=== PATIENT | female | born 1985 | race Caucasian/White ===

== ENCOUNTER 2018-03-04 16:45 | Emergency (ER) | payer OTHER ==
[2018-03-04] MEDS ORDERED: SODIUM CHLORIDE 0.9% 1,000 ML IV STA (17:11)
[2018-03-04] MEDS ORDERED: KETOROLAC 30 MG/ML 1 ML VIAL IVP STA (17:36)
[2018-03-04] MEDS ORDERED: diphenhydrAMINE 50 MG/ML 1 ML VIAL IVP STA (17:36)
[2018-03-04] MEDS ORDERED: METOCLOPRAMIDE 5 MG/ML 2 ML VIAL IVP STA (17:36)
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
[2018-03-04 18:42] VITALS: BP 112/78; PULSE 79; RESP 16
[2018-03-04 19:04] VITALS: TEMP 98.9
== END 2018-03-04 19:03 | disposition home or self-care (01) ==
LOC: EC 16:45
DX: S09.90XA Unspecified injury of head, initial encounter (principal); Z32.02 Encounter for pregnancy test, result negative; F32.9 Major depressive disorder, single episode, unspecified; F41.9 Anxiety disorder, unspecified; Z79.899 Other long term (current) drug therapy; W17.89XA Other fall from one level to another, initial encounter; Y93.89 Activity, other specified; Y92.89 Other specified places as the place of occurrence of the external cause
CPT/HCPCS: 81025; 70450; 99284; 96374; 96375 ×2; 96361; J1200; J2765; J1885

== ENCOUNTER 2018-09-05 09:25 | Emergency (ER) | payer OTHER ==
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
--- NOTE | 2018-09-05 10:37 | XR ---
EXAMINATION TYPE: XR chest 2V DATE OF EXAM: 09/05/2018 COMPARISON: NONE HISTORY: Chest pain TECHNIQUE: Frontal and lateral views of the chest are obtained. FINDINGS: There is no focal air space opacity. No evidence for pneumothorax. No pleural effusion. The cardiac silhouette size is within normal limits. The osseous structures are grossly intact. IMPRESSION: 1. No acute cardiopulmonary process.
[2018-09-05] MEDS ORDERED: IBUPROFEN 600 MG STARTER PACK 4 TAB BTL PO STA (11:12)
[2018-09-05 11:26] VITALS: BP 119/89; PULSE 86; RESP 16; TEMP 97.9
== END 2018-09-05 11:23 | disposition home or self-care (01) ==
LOC: EC 09:25
DX: S06.0X0A Concussion without loss of consciousness, initial encounter (principal); F41.9 Anxiety disorder, unspecified; F32.9 Major depressive disorder, single episode, unspecified; Z79.899 Other long term (current) drug therapy; V43.52XA Car driver injured in collision with other type car in traffic accident, initial encounter; Y92.410 Unspecified street and highway as the place of occurrence of the external cause
CPT/HCPCS: 70450; 71046; 72125; 99284

== ENCOUNTER 2018-09-26 11:13 | Emergency (ER) | payer OTHER ==
[2018-09-26 11:20] VITALS: BP 141/90; PULSE 76; TEMP 98.3
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
[2018-09-26 13:29] VITALS: RESP 16
== END 2018-09-26 13:20 | disposition home or self-care (01) ==
LOC: EC 11:13
DX: Z02.83 Encounter for blood-alcohol and blood-drug test (principal); Z04.3 Encounter for examination and observation following other accident; S60.512A Abrasion of left hand, initial encounter; S60.511A Abrasion of right hand, initial encounter; S80.212A Abrasion, left knee, initial encounter; S80.211A Abrasion, right knee, initial encounter; F41.9 Anxiety disorder, unspecified; F32.9 Major depressive disorder, single episode, unspecified; W01.0XXA Fall on same level from slipping, tripping and stumbling without subsequent striking against object, initial encounter; Y93.01 Activity, walking, marching and hiking
CPT/HCPCS: 99283

== ENCOUNTER 2020-07-15 15:23 | Emergency (ER) | payer OTHER ==
[2020-07-15 15:41] VITALS: RESP 18; TEMP 98
[2020-07-15 17:08] LABS: Appearance,Urine Cloudy (Clear); Bacteria,Urine Rare /hpf; Bilirubin,Urine Negative (Negative); Blood,Urine Negative (Negative); Color,Urine Light Yellow; Glucose,Urine (UA) Negative (Negative); Ketones,Urine Negative (Negative); Leukocyte Esterase,Urine Large (Negative); Mucus,Urine Rare /hpf; Nitrite,Urine Negative (Negative); Protein,Urine Negative (Negative); RBC,Urine 1 /hpf (0-5); Specific Gravity,Urine 1.018 (1.001-1.035); Squamous Epithelial Cell,Urine 15 /hpf (0-4); Urobilinogen,Urine <2.0 mg/dL (<2.0); WBC,Urine 2 /hpf (0-5)
--- NOTE | 2020-07-15 17:20 | US ---
EXAMINATION TYPE: Transabdominal DATE OF EXAM: 07/15/2020 5:03 PM COMPARISON: NONE CLINICAL HISTORY: abd pain, mild spotting. LLQ pain, spotting positive hCG test. EXAM PERFORMED: Transabdominal (TA) EXAM MEASUREMENTS: GESTATIONAL AGE / DATING Physician Established: Not yet established Dates by LMP: LMP unknown Dates by First Scan: No previous this is first scan Dates by Current Scan for: (10 weeks/3 days) EDC: 02/07/21 MATERNAL ANATOMY Uterus: 10.1 x 5.8 x 7.8cm Right Ovary: 3.1 x 1.4 x 1.5cm Left Ovary: 2.8 x 1.4 x 1.5cm Post CDS / Adnexa: wnl Presence of free fluid: no Presence of corpus luteal cyst: 2 hypoechoic areas right ovary = 1.2 x 1.2 x 1.2cm and 1.2 x 1.3 x 1. 3cm GESTATION / SURVEY CRL: 3.5cm (10 weeks/3 days) Yolk Sac (normal less than 6mm): 0.4cm Heart Rate: 149 bpm Rhythm: Normal IUP: Viable IUP Date of LMP: unknown Beta HcG (if available): Not available at this time Confirmation of single live intrauterine gestation as gestational sac, yolk sac, and pole are s een. No free fluid in pelvic cul-de-sac. Both ovaries seen. There are 2 adjacent small hypoechoic lesions right ovary, one likely reflects a c orpus luteal cyst. No suspicious extra ovarian adnexal masses. IMPRESSION: Single live intrauterine gestation is confirmed, mean crown-rump length 3.5 cm correspond ing to 10 week 3 day old fetus.
[2020-07-15] MEDS ORDERED: Rhogam IMMUNE GLOBULIN 1,500 UNIT/1 ML IM ONE (17:33)
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
[2020-07-15 18:26] VITALS: BP 121/73; PULSE 81
== END 2020-07-15 18:25 | disposition home or self-care (01) ==
LOC: EC 15:23
DX: O99.891 Other specified diseases and conditions complicating pregnancy (principal); R10.30 Lower abdominal pain, unspecified; O46.91 Antepartum hemorrhage, unspecified, first trimester; Z29.14 Encounter for prophylactic rabies immune globulin; O99.341 Other mental disorders complicating pregnancy, first trimester; F41.9 Anxiety disorder, unspecified; F32.9 Major depressive disorder, single episode, unspecified; Z79.899 Other long term (current) drug therapy; Z3A.12 12 weeks gestation of pregnancy
CPT/HCPCS: 96372; 99284 ×2; 96374; 86900; 86901; 86850; 81001; 76801; J2791

== ENCOUNTER 2020-11-05 09:15 | Outpatient (CLI) | payer OTHER ==
--- NOTE | 2020-11-05 11:26 | US ---
EXAMINATION TYPE: US OB >= 14 wk fetus DATE OF EXAM: 11/05/2020 COMPARISON: None CLINICAL HISTORY: placenta placement, rule out abruption; patient stated fell yesterday and notices i ntermittent left lateral abd. and pelvic cramping TECHNIQUE: Transabdominal (TA) GESTATIONAL AGE / DATING Physician Established: (26 weeks/4 days) EDC: 02/07/2021 Dates by LMP: unknown Dates by First Scan: (26 weeks/4 days) EDC: 02/07/2021 Dates by Current Scan: (25 weeks/6 days) EDC: 02/12/2021 Beta HCG (if available): NA SURVEY IUP: Single PLACENTA: Anterior; no abruption was seen at time of US. PREVIA: No Previa SERGEY: 15.6 cm Normal CERVICAL LENGTH (transabdominal: norm > 3.0cm): 3.3 cm BIOMETRY PRESENTATION: Vertex LIE: Longitudinal BPD: 6.5 cm 26 weeks / 2 days HC: 24.4 cm 26 weeks / 3 days AC: 21.7 cm 26 weeks / 1 day FL: 4.8 cm 26 weeks / 1 day ESTIMATED WEIGHT IN GRAMS: 901.47 grams ESTIMATED WEIGHT IN LBS/OZ: 2 lb. 0 oz. WEIGHT PERCENTAGE BASED ON ESTABLISHED DATES: 23.5% HC/AC: 1.13 Normal FL/AC: 22.18 Normal HEART RATE: 154 bpm RHYTHM: Normal Focal myometrial contraction was noted on inferior posterior uterine wall at exam's end. Single, live IUP,25 weeks/6 days, EDC: 02/12/2021, HR 154bpm. IMPRESSION: 1. Single intrauterine gestation estimated at 25 weeks 6 days gestation based on the current ultrasou nd measurements. This has a calculated EDC of 02/12/2021. 2. Cardiac activity measures 154 bpm. 3. No placental abruption is identified on the images provided.
[2020-11-05 11:36] VITALS: BP 113/70; PULSE 92; RESP 20; TEMP 98.3
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
== END 2020-11-05 10:50 | disposition home or self-care (01) ==
LOC: FBPOP 09:15
PROVIDERS: ATTEND Obstetrics & Gynecology
DX: O47.02 False labor before 37 completed weeks of gestation, second trimester (principal); Z3A.25 25 weeks gestation of pregnancy
CPT/HCPCS: 76805; G0463; 99213

== ENCOUNTER 2020-11-27 13:30 | Outpatient (CLI) | payer OTHER ==
[2020-11-27 18:40] VITALS: BP 123/79; PULSE 104; RESP 20; TEMP 98.3
--- NOTE | 2020-12-01 08:09 | P.MSEPDOC ---
Presenting Problems - Arrival Data Date of Arrival on Unit: 11/27/20 Time of Arrival on Unit: 13:35 Mode of Transport: Wheelchair - Complaint OB-Reason for Admission/Chief Complaint: Rule Out PROM Comment: to r/o labor. abd pain since being at work all morning. states leaking this morning and passed a large chunk of brown mucousy liquid. Medical History - Information : 6 Para: 2 Term: 2 : 0 Abortions: Spontaneous or Elective: 3 Number of Living Children: 2 - Gestational Age Gestational Age by STEPHANIE (wks/days): 29 Weeks and 3 Days Review of Systems - Review of Systems Constitutional: No problems Breast: No problems ENT: No problems Cardiovascular: No problems Respiratory: No problems Gastrointestinal: No problems Genitourinary: No problems Musculoskeletal: No problems Neurological: No problems Skin: No problems Comment: borderline personality disorder. on prozac, klonopin, ritalin prn, asa, pnv . Vital Signs - Temperature Temperature: 98.3 F Temperature Source: Oral - Pulse Right Brachial Pulse Rate: 104 Pulse Assessment Method: Automatic Cuff - Respirations Respiratory Rate: 20 Oxygen Delivery Method: Room Air O2 Sat by Pulse Oximetry: 99 - Blood Pressure Right Arm Blood Pressure: 123/79 Blood Pressure Mean: 93 Blood Pressure Source: Automatic Cuff Medical Screen Scoring (Pre) - Cervical Exam Dilation: 0 cm = 0 Membranes: Intact - Uterine Contractions Frequency: N/A Duration: N/A Intensity: N/A - Maternal Vital Signs Maternal Temperature: N/A Maternal Blood Pressure: N/A Signs of Preeclampsia: N/A Maternal Respirations: N/A - Maternal Trauma Maternal Trauma: N/A - Assessment - Baby A Baseline FHR: 135 Heart Rate - NICHD Category: Category I (Normal) = 0 NST: Reactive Position: N/A Station: N/A - Total Score - Baby A Total Score - Baby A: 0 - Total Score - Baby B Total Score - Baby B: 0 - Total Score - Baby C Total Score - Baby C: 0 - Level of Risk - Baby A Level of Risk - Baby A: Low (0-5) - Level of Risk - Baby B Level of Risk - Baby B: Low (0-5) - Level of Risk - Baby C Level of Risk - Baby C: Low (0-5) Physician Notification (Pre) - Physician Notified Physician Notified Date: 11/27/20 Physician Notified Time: 14:26 Spoke With: oracio New Order Received: Yes - Notification Comment Comment: discharge home. metamucil, stool softeners, fruit and veg, prunes, juice, to keep next appt Disposition - Disposition OB Disposition: Physician follow up in office, Discharge to home Discharge Date: 11/27/20 Discharge Time: 14:36 I agree with the RN Medical Screening Exam: Yes Case reviewed; plan agreed upon as documented in EMR&OBIX.: Yes Comments: Patient was neither seen nor examined by myself Diagnosis: FALSE LABOR BEFORE 37 COMPLETED WEEKS OF GEST, SECOND TRI
== END 2020-11-27 14:36 | disposition home or self-care (01) ==
LOC: FBPOP 13:30
PROVIDERS: ATTEND Obstetrics & Gynecology
DX: O47.00 False labor before 37 completed weeks of gestation, unspecified trimester (principal); Z3A.29 29 weeks gestation of pregnancy
CPT/HCPCS: 59025; 84112; G0463; 99213

== ENCOUNTER 2020-12-02 17:30 | Outpatient (CLI) | payer OTHER ==
[2020-12-02 18:30] VITALS: BP 130/74; PULSE 106; RESP 16; TEMP 98
== END 2020-12-02 18:25 | disposition home or self-care (01) ==
LOC: FBPOP 17:30
PROVIDERS: ATTEND Obstetrics & Gynecology
DX: O26.93 Pregnancy related conditions, unspecified, third trimester (principal); M54.5 Low back pain; Z3A.30 30 weeks gestation of pregnancy
CPT/HCPCS: 59025; G0463; 99213

== ENCOUNTER 2020-12-15 15:10 | Outpatient (CLI) | payer OTHER ==
[2020-12-15 17:01] VITALS: BP 108/66; PULSE 86; RESP 16; TEMP 98
--- NOTE | 2020-12-29 11:27 | P.MSEPDOC ---
Presenting Problems - Arrival Data Date of Arrival on Unit: 12/15/20 Time of Arrival on Unit: 15:20 Mode of Transport: Ambulatory - Complaint OB-Reason for Admission/Chief Complaint: Decreased Movement, NST Comment: from office for monitoring Medical History - Information : 6 Para: 2 Term: 2 : 0 Abortions: Spontaneous or Elective: 3 Number of Living Children: 2 - Gestational Age Gestational Age by STEPHANIE (wks/days): 32 Weeks and 0 Days Review of Systems - Review of Systems Constitutional: No problems Breast: No problems ENT: No problems Cardiovascular: No problems Respiratory: No problems Gastrointestinal: No problems Genitourinary: No problems Musculoskeletal: No problems Neurological: No problems Skin: No problems Comment: has restless leg. rt side. standing cant sit throughout nst Vital Signs - Temperature Temperature: 98.0 F Temperature Source: Temporal Artery Scan - Pulse Right Apical Pulse Rate: 86 Pulse Assessment Method: Automatic Cuff - Respirations Respiratory Rate: 16 Oxygen Delivery Method: Room Air O2 Sat by Pulse Oximetry: 98 - Blood Pressure Right Arm Blood Pressure: 108/66 Blood Pressure Mean: 80 Blood Pressure Source: Automatic Cuff Medical Screen Scoring (Pre) - Cervical Exam Dilation: Exam Deferred Effacement: Exam Deferred Membranes: Intact - Uterine Contractions Frequency: N/A Duration: N/A Intensity: N/A - Maternal Vital Signs Maternal Temperature: N/A Maternal Blood Pressure: N/A Signs of Preeclampsia: N/A Maternal Respirations: N/A - Maternal Trauma Maternal Trauma: N/A - Assessment - Baby A Baseline FHR: 135 Heart Rate - NICHD Category: Category I (Normal) = 0 NST: Reactive Position: N/A Station: N/A - Total Score - Baby A Total Score - Baby A: 0 - Total Score - Baby B Total Score - Baby B: 0 - Total Score - Baby C Total Score - Baby C: 0 - Level of Risk - Baby A Level of Risk - Baby A: Low (0-5) - Level of Risk - Baby B Level of Risk - Baby B: Low (0-5) - Level of Risk - Baby C Level of Risk - Baby C: Low (0-5) Physician Notification (Pre) - Physician Notified Physician Notified Date: 12/15/20 Physician Notified Time: 15:20 New Order Received: Yes - Notification Comment Comment: may discharge home if reactive nst after 1 hour of monitoring Disposition - Disposition OB Disposition: Physician follow up in office, Discharge to home Discharge Date: 12/15/20 Discharge Time: 16:30 I agree with the RN Medical Screening Exam: Yes Case reviewed; plan agreed upon as documented in EMR&OBIX.: Yes Comments: patient was neither seen nor examined by me. Diagnosis: DECREASED MOVEMENTS, THIRD TRIMESTER, FETUS 1
== END 2020-12-15 16:30 | disposition home or self-care (01) ==
LOC: FBPOP 15:10
PROVIDERS: ATTEND Obstetrics & Gynecology
DX: O36.8130 Decreased fetal movements, third trimester, not applicable or unspecified (principal); Z3A.32 32 weeks gestation of pregnancy
CPT/HCPCS: 59025; G0463; 99213

== ENCOUNTER 2021-01-08 06:19 | Inpatient (IN) | payer OTHER ==
[2021-01-08] MEDS ORDERED: CARBOPROST TROMETHAMINE 250 MCG/ML 1 ML AMP IM PRN (06:37)
[2021-01-08] MEDS ORDERED: METHYLERGONOVINE 0.2 MG/ML 1 ML AMP IM PRN (06:37)
[2021-01-08] MEDS ORDERED: OXYTOCIN 10 UNIT/ML 1 ML VIAL IM PRN (06:37)
[2021-01-08] MEDS ORDERED: TERBUTALINE 1 MG/ML VIAL SQ PRN (06:37)
[2021-01-08] MEDS ORDERED: LIDOCAINE 0.5% (PF) 5 MG/ML (50 ML SDV) SQ PRN (06:37)
[2021-01-08] MEDS ORDERED: PHENYLEPHRINE-0.9% NACL SYG 1,000 MCG/10 ML SYRINGE ONE (06:39)
[2021-01-08] MEDS ORDERED: DEXAMETHASONE SOD PHOSPHATE 4 MG/ML 1 ML VIAL ONE (06:39)
[2021-01-08] MEDS ORDERED: ONDANSETRON 4 MG/2 ML VIAL ONE (06:39)
[2021-01-08] MEDS ORDERED: PROPOFOL 10 MG/ML 20 ML VIAL IV ONE (06:39)
[2021-01-08] MEDS ORDERED: SUCCINYLCHOLINE CHLORIDE 100 MG/5 ML SYR IV ONE (06:39)
[2021-01-08] MEDS ORDERED: fentaNYL (PF) 50 MCG/ML 2 ML AMP ONE (06:39)
[2021-01-08] MEDS ORDERED: OXYTOCIN 10 UNIT/ML 1 ML VIAL ONE (06:39)
[2021-01-08 06:45] LABS: Basophils % (A) 0 %; Eosinophils # (A) 0.1 k/uL (0-0.7); Eosinophils % (A) 1 %; HCT 35.3 % (34.0-46.0); HGB 11.8 gm/dL (11.4-16.0); Lymphocytes # (A) 3.2 k/uL (1.0-4.8); Lymphocytes % (A) 27 %; MCH 30.6 pg (25.0-35.0); MCHC 33.5 g/dL (31.0-37.0); MCV 91.4 fL (80.0-100.0); Mean Platelet Volume 11.8; Monocytes # (A) 0.6 k/uL (0-1.0); Monocytes % (A) 5 %; Neutrophils # (A) 7.9 k/uL (1.3-7.7); Neutrophils % (A) 66 %; RBC 3.86 m/uL (3.80-5.40); RDW 13.8 % (11.5-15.5)
[2021-01-08] MEDS ORDERED: LACTATED RINGERS 1,000 ML IV SCH (06:45)
[2021-01-08 07:16] LABS: Platelet Count 255 k/uL (150-450)
[2021-01-08 07:17] LABS: Large Platelets Present; WBC 11.9 k/uL (3.8-10.6)
[2021-01-08 07:34] LABS: Amphetamine Screen,Urine Not Detected (NotDetected); Barbiturate Screen,Urine Not Detected (NotDetected); Benzodiazepines Screen,Urine Detected (NotDetected); Cocaine Screen,Urine Not Detected (NotDetected); Methadone Screen, Urine Not Detected (NotDetected); Opiate Screen,Urine Not Detected (NotDetected); Oxycodone Screen, Urine Not Detected (NotDetected); Phencyclidine Screen,Urine Not Detected (NotDetected); Tricyclic Antidepressant,Urine Not Detected (NotDetected); Urn Cannabinoid Scrn Not Detected (NotDetected)
[2021-01-08] MEDS ORDERED: diphenhydrAMINE 50 MG/ML 1 ML VIAL IVP PRN ×2 (07:49)
[2021-01-08] MEDS ORDERED: diphenhydrAMINE 25 MG CAP PO PRN (07:49)
[2021-01-08] MEDS ORDERED: ONDANSETRON 4 MG/2 ML VIAL IVP PRN (07:49)
[2021-01-08] MEDS ORDERED: METOCLOPRAMIDE 5 MG/ML 2 ML VIAL IVP PRN (07:49)
[2021-01-08] MEDS ORDERED: diphenhydrAMINE 50 MG CAP PO PRN (07:49)
[2021-01-08] MEDS ORDERED: NALOXONE 0.4 MG/ML 1 ML VIAL IV PRN (07:49)
[2021-01-08] MEDS ORDERED: SIMETHICONE 80 MG CHEWABLE PO PRN (07:49)
[2021-01-08] MEDS ORDERED: HYDROmorphone 4 MG TABLET PO PRN (07:49)
[2021-01-08] MEDS ORDERED: HYDROmorphone 2 MG TAB PO PRN (07:59)
[2021-01-08] MEDS ORDERED: OXYTOCIN 30 UNITS/500 ML NS 30 UNIT in SALINE 1 500ML.BAG IV SCH (08:00)
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
[2021-01-08] MEDS ORDERED: ACETAMINOPHEN IV (For NPO) 1,000 MG in EMPTY BAG 1 BAG IVPB STA (08:09)
--- NOTE | 2021-01-08 08:11 | P.OP ---
Date of Procedure: 01/08/21 Preoperative Diagnosis: #1. 35-3/7 weeks, acute vaginal bleeding #2. Presumed placental abruption #3. Nonreassuring heart rate status, category 2 tracing Postoperative Diagnosis: Same Procedure(s) Performed: #1. Emergency primary low-transverse section Anesthesia: SO Surgeon: Boy Turpin Rn Security #1: Damir Daniel Estimated Blood Loss (ml): 800 IV fluids (ml): 1,000 Urine output (ml): 25 Pathology: other (Placenta) Condition: stable Disposition: floor Operative Findings: Please see history and physical for findings lead to emergency section. In the operating room, she was delivered of a viable 5 lbs. 5 oz. baby girl with Apgars of 8 at 1 minute and 9 at 5 minutes in vertex presentation. Cord gases returned with arterial blood pH of 7.18, the remainder of the gases are available in the chart. Upon opening of the uterus, a large clot was immediately noted. Examination the placenta demonstrated approximately one quarter of the placenta to have adherent clot to the posterior or maternal interface. Otherwise, the uterus, tubes, and ovaries were normal to inspection. The placenta was otherwise normal to inspection as was the cord. Description of Procedure: The patient was prepped and draped in usual fashion and general endotracheal anesthesia was then administered. A Pfannenstiel incision was made in a relatively urgent fashion by Dr. Daniel secondary to concern for heart rate tracing in my absence. The incision was extended into the abdominal cavity without difficulty. The bladder peritoneum was left intact and a 2 cm incision made in the lower uterine segment demonstrating a significant amount of blood in the fluid. The incision was extended bluntly in both directions. The head was delivered up and through the incision where the nose and mouth were thoroughly suctioned. Remainder of the infant was delivered onto the field where the cord was doubly clamped, cut, and the infant passed for resuscitative measures with weight and Apgars as noted above. The drug enforcement agent was standing by. A segment of cord was doubly clamped, cut, and set aside to obtain cord gases. cord blood was collected for evaluation for the necessity of RhoGAM. The placenta was then delivered manually and intact as noted above. Later examination showed an adherent clotted area over approximately one quarter of the placental disc. The uterus was exteriorized and the interior cavity of uterus swept of any remaining placental or membranous fragments. At this time, I arrived in the operating room and assumed control of the surgery. The uterus was closed in 2 layers, the first layer being a running locking stitch of 0 chromic catgut followed by a running imbricating stitch of 0 chromic catgut. Hemostasis appeared to be excellent. The posterior cul-de-sac was suctioned using a guard and the uterus replaced within the abdominal cavity. The gutters were swept of any remaining blood, fluid, or clot. Examination of the incision demonstrated some moderate bleeding at the left angle of the incision which was made hemostatic with a single [id number] stitch of 0 chromic catgut. Remainder the incision appeared to be hemostatic and any small points of bleeding were made hemostatic with the Bovie. The parietal peritoneum was then loosely reapproximated and layer of muscles examined and found to be hemostatic. The fascia was closed with a single running stitch of 0 Vicryl proceeding from margin to margin. The subcutaneous tissues were irrigated, made hemostatic with the Bovie, and reapproximated with a running stitch of 30 plain catgut. The skin was reapproximated with a running subcuticular stitch of 4-0 Vicryl from margin to margin followed by half-inch Steri-Strips placed with Mastisol. Assessment a blood loss for the case was approximately 800 mL including the clot noted inside the uterus. All sponge, instrument, needle counts were correct. There were no complications to the procedure aside from the diagnosis of placental abruption. The patient tolerated the procedure well and proceeded to the recovery room in stable condition. Both mother and infant are resting comfortably in recovery.
[2021-01-08] MEDS: HYDROmorphone PCA 10 MG/50 ML BAG IV PRN ×2 (09:03→21:25)
[2021-01-08] MEDS: LACTATED RINGERS 1,000 ML IV SCH ×2 (09:54→23:15)
[2021-01-08] MEDS: SENNOSIDES-DOCUSATE SODIUM 1 EACH TAB PO SCH ×2 (09:54→20:08)
[2021-01-08] MEDS ORDERED: Rhogam IMMUNE GLOBULIN 1,500 UNIT/1 ML IM ONE (13:46)
[2021-01-08] MEDS: KETOROLAC 15 MG/ML 1 ML VIAL IVP SCH ×2 (14:00→20:07)
[2021-01-08] MEDS: IBUPROFEN 600 MG TAB PO SCH ×2 (14:01→23:13)
[2021-01-08] MEDS: ACETAMINOPHEN TAB 500 MG TAB PO SCH ×2 (15:59→23:13)
[2021-01-08] MEDS: ZOLPIDEM 5 MG TAB PO PRN (20:09)
[2021-01-09] MEDS: ACETAMINOPHEN TAB 500 MG TAB PO SCH ×4 (00:38→20:34)
[2021-01-09] MEDS: LACTATED RINGERS 1,000 ML IV SCH (00:43)
[2021-01-09] MEDS: IBUPROFEN 600 MG TAB PO SCH ×3 (03:05→16:14)
[2021-01-09] MEDS: KETOROLAC 15 MG/ML 1 ML VIAL IVP SCH ×2 (03:06→10:36)
--- NOTE | 2021-01-09 07:48 | P.PN ---
Subjective Progress Note Date: 01/09/21 Principal diagnosis: Postoperative day #1 Slept well. Minimal pain. No complaints. Objective - Vital Signs Vital signs: Vital Signs Temp 98.2 F 01/09/21 03:46 Pulse 88 01/09/21 03:46 Resp 16 01/09/21 03:46 BP 112/71 01/09/21 03:46 Pulse Ox 97 01/09/21 03:46 Intake & Output 01/08/21 01/09/21 01/09/21 18:59 06:59 18:59 Output Total 1400 200 Balance -1400 -200 Weight 72.575 kg Output: Urine 1400 200 Uretheral (Minor) 400 Other: # Voids 1 - Constitutional General appearance: Present: average body habitus, cooperative - EENT Eyes: Present: PERRLA ENT: Present: hearing grossly normal - Respiratory Respiratory: bilateral: CTA - Cardiovascular Rhythm: regular - Gastrointestinal Gastrointestinal Comment(s): Incision clean and dry, intact, Steri-Strips applied. Fundus firm, midline, symmetric, 18 week size. General gastrointestinal: Present: normal bowel sounds - Integumentary Integumentary: Present: normal - Neurologic Neurologic: Present: CNII-XII intact - Musculoskeletal Musculoskeletal: Present: gait normal, strength equal bilaterally - Psychiatric Psychiatric: Present: A&O x's 3, appropriate affect - Labs CBC & Chem 7: 01/08/21 06:35 Assessment and Plan Assessment: Doing well postoperative day #1 Plan: Continue postoperative care. Advanced diet and activity.
[2021-01-09 08:02] LABS: Basophils % (A) 0 %; Eosinophils % (A) 0 %; HCT 24.6 % (34.0-46.0); Lymphocytes # (A) 2.5 k/uL (1.0-4.8); Lymphocytes % (A) 17 %; MCH 32.8 pg (25.0-35.0); MCHC 35.8 g/dL (31.0-37.0); MCV 91.4 fL (80.0-100.0); Monocytes # (A) 0.6 k/uL (0-1.0); Monocytes % (A) 4 %; Neutrophils # (A) 11.3 k/uL (1.3-7.7); Platelet Count 203 k/uL (150-450); RBC 2.69 m/uL (3.80-5.40); RDW 13.2 % (11.5-15.5); WBC 14.6 k/uL (3.8-10.6)
[2021-01-09 08:21] LABS: HGB 8.8 gm/dL (11.4-16.0)
[2021-01-09 09:00] LABS: Large Platelets Present
[2021-01-09] MEDS: SENNOSIDES-DOCUSATE SODIUM 1 EACH TAB PO SCH ×2 (09:39→20:34)
[2021-01-09] MEDS: FLUoxetine HCL 20 MG CAP PO SCH (11:35)
[2021-01-09] MEDS: HYDROmorphone 2 MG TAB PO PRN ×2 (18:41→22:37)
[2021-01-09] MEDS: ZOLPIDEM 5 MG TAB PO PRN (22:37)
[2021-01-10] MEDS: HYDROmorphone 2 MG TAB PO PRN ×5 (05:06→21:30)
[2021-01-10] MEDS: IBUPROFEN 600 MG TAB PO SCH ×4 (05:32→21:35)
[2021-01-10] MEDS: ACETAMINOPHEN TAB 500 MG TAB PO SCH ×3 (05:33→18:11)
[2021-01-10] MEDS: SENNOSIDES-DOCUSATE SODIUM 1 EACH TAB PO SCH ×2 (09:01→21:29)
[2021-01-10] MEDS: FLUoxetine HCL 20 MG CAP PO SCH (09:03)
--- NOTE | 2021-01-10 11:08 | P.PNOBGPC ---
Subjective - Subjective Patient reports: Reports appetite normal, Reports voiding normally, Reports pain well controlled, Reports ambulating normally : doing well, in NICU (And observation for possible symptoms of withdrawal as well as concerns for prematurity.) Objective - Vital Signs Latest vital signs: Vital Signs Temp Pulse Resp BP Pulse Ox 01/10/21 08:00 97.9 F 112 H 18 102/74 100 01/10/21 00:00 98.1 F 68 14 104/61 98 01/09/21 16:00 98.2 F 69 18 108/63 97 Intake and Output 01/09/21 01/10/21 01/10/21 22:59 06:59 14:59 Other: # Voids 1 1 1 # Bowel Movements 0 - Exam Extremities: Present: normal Abdomen: Present: normal appearance, soft. Absent: distention, tenderness Incision: Present: normal, dry, intact Uterus: Present: normal, firm (The uterine fundus is tonic and are peripherally tender around the umbilicus.) Assessment and Plan (1) 35 to 36 weeks gestation of Current Visit: Yes Status: Acute Code(s): [id number] - SNOMED Code(s): 106882927 (2) Non-reassuring electronic monitoring tracing Current Visit: Yes Status: Acute Code(s): O36.8390 - MATERN CARE FOR ABNLT FETL HRT RATE OR RHYM, UNSP TRI, UNSP SNOMED Code(s): 449499073 (3) Placental abruption Current Visit: Yes Status: Acute Code(s): O45.90 - PREMATURE SEPARATION OF PLACENTA, UNSP, UNSP TRIMESTER SNOMED Code(s): 832521495 (4) S/P section Current Visit: Yes Status: Acute Code(s): Z98.891 - HISTORY OF UTERINE SCAR FROM PREVIOUS SURGERY SNOMED Code(s): 877234489 Plan: Continue routine postoperative care. I have strongly encouraged the patient amulet in the hallways at least 4 times daily. She is otherwise performing all activities of daily living.
[2021-01-10 18:34] LABS: Amphetamine Screen,Urine Not Detected (NotDetected); Barbiturate Screen,Urine Not Detected (NotDetected); Benzodiazepines Screen,Urine Detected (NotDetected); Cocaine Screen,Urine Not Detected (NotDetected); Methadone Screen, Urine Not Detected (NotDetected); Opiate Screen,Urine Detected (NotDetected); Oxycodone Screen, Urine Not Detected (NotDetected); Phencyclidine Screen,Urine Not Detected (NotDetected); Tricyclic Antidepressant,Urine Not Detected (NotDetected); Urn Cannabinoid Scrn Not Detected (NotDetected)
[2021-01-10] MEDS: ZOLPIDEM 5 MG TAB PO PRN (21:30)
[2021-01-11] MEDS: ACETAMINOPHEN TAB 500 MG TAB PO SCH ×5 (00:44→19:03)
[2021-01-11] MEDS: HYDROmorphone 2 MG TAB PO PRN ×4 (02:10→21:29)
[2021-01-11] MEDS: IBUPROFEN 600 MG TAB PO SCH ×4 (04:03→21:30)
[2021-01-11] MEDS: SENNOSIDES-DOCUSATE SODIUM 1 EACH TAB PO SCH ×2 (06:44→21:29)
[2021-01-11] MEDS: FLUoxetine HCL 20 MG CAP PO SCH (09:27)
--- NOTE | 2021-01-11 10:19 | P.PNOBGPC ---
Subjective - Subjective Patient reports: Reports appetite normal, Reports voiding normally, Reports pain well controlled, Reports ambulating normally : doing well, in NICU (Under observation for potential withdrawal and minor issues of prematurity.) Objective - Vital Signs Latest vital signs: Vital Signs Temp Pulse Resp BP Pulse Ox 01/11/21 04:00 98.9 F 80 15 106/57 01/10/21 20:06 98.6 F 98 20 137/77 100 01/10/21 16:00 97.8 F 80 16 113/65 100 Intake and Output 01/10/21 01/11/21 01/11/21 22:59 06:59 14:59 Other: # Voids 1 1 - Exam Extremities: Present: normal Abdomen: Present: normal appearance, soft. Absent: distention, tenderness Incision: Present: normal, dry, intact Uterus: Present: normal, firm (Uterus is tonic and appropriately tender below the umbilicus.) - Labs Labs: Abnormal Lab Results - Last 24 Hours (Table) 01/10/21 Range/Units 18:16 Urine Opiates Screen Detected H (NotDetected) U Benzodiazepines Scrn Detected H (NotDetected) Assessment and Plan (1) 35 to 36 weeks gestation of Current Visit: Yes Status: Acute Code(s): [id number] - SNOMED Code(s): 138574639 (2) Non-reassuring electronic monitoring tracing Current Visit: Yes Status: Acute Code(s): O36.8390 - MATERN CARE FOR ABNLT FETL HRT RATE OR RHYM, UNSP TRI, UNSP SNOMED Code(s): 791018655 (3) Placental abruption Current Visit: Yes Status: Acute Code(s): O45.90 - PREMATURE SEPARATION OF PLACENTA, UNSP, UNSP TRIMESTER SNOMED Code(s): 453548059 (4) S/P section Current Visit: Yes Status: Acute Code(s): Z98.891 - HISTORY OF UTERINE SCAR FROM PREVIOUS SURGERY SNOMED Code(s): 494594400 Plan: Continue routine and postoperative care. I would anticipate discharge home tomorrow pending no maternal complications. I have again encouraged her to continue ambulation in the hallways routinely.
[2021-01-11] MEDS: ZOLPIDEM 5 MG TAB PO PRN (21:29)
[2021-01-12] MEDS: IBUPROFEN 600 MG TAB PO SCH ×2 (00:35→06:54)
[2021-01-12 00:47] VITALS: RESP 16
[2021-01-12] MEDS: ACETAMINOPHEN TAB 500 MG TAB PO SCH ×2 (00:48→07:18)
[2021-01-12] MEDS: HYDROmorphone 2 MG TAB PO PRN ×2 (03:36→12:26)
--- NOTE | 2021-01-12 08:01 | P.DS ---
Providers Date of admission: 01/08/21 06:59 Expected date of discharge: 01/12/21 Attending physician: Lea Estrada Primary care physician: Stated None Hospital Course: This is a 35-year-old 6 para 2031 EDC 02/09/2021 at 35-3/7 weeks' gestation. Patient presented from home with bright red brisk vaginal bleeding. Diagnosis of abruption was made, and patient was taken for a stat low transverse section under general anesthetic. She gave to a liveborn female with scores of 8 and 9 at one and 5 minutes respectively. Infant weighed 2400 g or 5 lbs. 5 oz. Please see dictated operative note for details. Postoperatively the patient has done reasonably well. Her is still in the nursery and likely will be discharged home tomorrow. Patient's incision is clean and dry, intact, Steri-Strips applied. Breast-feeding is going well, I have given her prescription for a double electric breast pump. Patient's history in the past with significant for drug use, she has been clean for many years. However, CPS consultation has been requested per the hospital staff and is currently pending. Patient's pain relief at this time is very well controlled with ibuprofen products. Her breasts are not engorged, extremities reveal no edema. Patient is judged to be in good condition for discharge home. She will follow-up with me in the office in 2 weeks. Patient will call with any fevers shakes or chills, foul smelling or copious lochia, with the passage of large blood clots, with any pain not alleviated by [id number] products, or indeed with any concerns. Infant will likely be discharged home tomorrow, and will follow-up with electronic news gathering camera person as per recommendations. Assessment: Doing well postoperative day #4 Patient Condition at Discharge: Good Plan - Discharge Summary Discharge Rx Participant: No New Discharge Prescriptions: No Action FLUoxetine HCL [PROzac] 80 mg PO DAILY MDD daily Pnv 11/Iron Fum/Folic Acid/Om3 [Virt-Miguel Dha Softgel] 1 tab PO DAILY MDD 1 tab Discharge Medication List FLUoxetine HCL [PROzac] 80 mg PO DAILY MDD daily 02/07/14 [History] Pnv 11/Iron Fum/Folic Acid/Om3 [Virt-Miguel Dha Softgel] 1 tab PO DAILY MDD 1 tab 11/05/20 [History] Follow up Appointment(s)/Referral(s): Lea Estrada MD [STAFF PHYSICIAN] - 2 Weeks Discharge Disposition: HOME SELF-CARE
[2021-01-12] MEDS: SENNOSIDES-DOCUSATE SODIUM 1 EACH TAB PO SCH (08:23)
[2021-01-12] MEDS: FLUoxetine HCL 20 MG CAP PO SCH (08:23)
[2021-01-12 09:08] VITALS: BP 131/81; PULSE 101; TEMP 98.8
== END 2021-01-12 15:15 | disposition home or self-care (01) | DRG 788 ==
LOC: FBPOP 06:19 → 4FBP 06:59
PROVIDERS: ADMIT Obstetrics & Gynecology; ATTEND Obstetrics & Gynecology
PROC: 3E0234Z Introduction of Serum, Toxoid and Vaccine into Muscle, Percutaneous Approach (ICD-10-PCS; 2021-01-08)
PROC: 10D00Z1 Extraction of Products of Conception, Low, Open Approach (ICD-10-PCS; principal; 2021-01-08 06:30)
DX: O45.93 Premature separation of placenta, unspecified, third trimester (principal); O76 Abnormality in fetal heart rate and rhythm complicating labor and delivery; O34.211 Maternal care for low transverse scar from previous cesarean delivery; N85.8 Other specified noninflammatory disorders of uterus; O26.893 Other specified pregnancy related conditions, third trimester; O99.344 Other mental disorders complicating childbirth; F32.9 Major depressive disorder, single episode, unspecified; Z67.41 Type O blood, Rh negative; Z3A.35 35 weeks gestation of pregnancy; Z37.0 Single live birth; Z79.899 Other long term (current) drug therapy; Z87.891 Personal history of nicotine dependence
CPT/HCPCS: 80306; 82803; 85025; 85461; 86850; 86870; 86880; 86900; 86901; 88307; 99215

== ENCOUNTER 2021-01-16 12:18 | Emergency (ER) | payer OTHER ==
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
--- NOTE | 2021-01-16 13:24 | XR ---
EXAMINATION TYPE: XR chest 2V DATE OF EXAM: 01/16/2021 COMPARISON: NONE TECHNIQUE: PA and lateral views submitted. HISTORY: Cough FINDINGS: The lungs are clear and there is no pneumothorax, pleural effusion, or focal pneumonia. Mild hyperi nflation. IMPRESSION: 1. No acute process.
[2021-01-16 13:40] VITALS: BP 119/87; PULSE 86; RESP 18; TEMP 98.4
== END 2021-01-16 14:45 | disposition home or self-care (01) ==
LOC: EC 12:18
DX: R05 Cough (principal); R14.1 Gas pain; R07.81 Pleurodynia; R09.89 Other specified symptoms and signs involving the circulatory and respiratory systems; Z20.822 Contact with and (suspected) exposure to COVID-19; Z87.891 Personal history of nicotine dependence
CPT/HCPCS: 71046; 87635; 99283

== ENCOUNTER 2021-06-25 02:05 | Emergency (ER) | payer OTHER ==
[2021-06-25 02:10] VITALS: RESP 18; TEMP 98.2
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
[2021-06-25] MEDS ORDERED: KETOROLAC 15 MG/ML 1 ML VIAL IVP STA (02:37)
[2021-06-25] MEDS ORDERED: SODIUM CHLORIDE 0.9% 1,000 ML IV STA ×2 (02:37)
[2021-06-25] MEDS ORDERED: MORPHINE SULFATE 4 MG/ML SYRINGE IV STA (02:37)
[2021-06-25] MEDS ORDERED: SODIUM CHLORIDE 0.9% 500 ML 500 ML IV STA (02:37)
[2021-06-25 03:00] LABS: Basophils # (A) 0.1 k/uL (0-0.2); Basophils % (A) 0 %; Eosinophils # (A) 0.1 k/uL (0-0.7); Eosinophils % (A) 1 %; HCT 37.7 % (34.0-46.0); HGB 12.4 gm/dL (11.4-16.0); Lymphocytes # (A) 2.7 k/uL (1.0-4.8); Lymphocytes % (A) 19 %; MCH 30.3 pg (25.0-35.0); MCHC 32.9 g/dL (31.0-37.0); MCV 92.2 fL (80.0-100.0); Mean Platelet Volume 9.7; Monocytes # (A) 0.7 k/uL (0-1.0); Monocytes % (A) 5 %; Neutrophils # (A) 10.3 k/uL (1.3-7.7); Neutrophils % (A) 73 %; Platelet Count 275 k/uL (150-450); RBC 4.09 m/uL (3.80-5.40); RDW 13.8 % (11.5-15.5); WBC 14.1 k/uL (3.8-10.6)
[2021-06-25 03:20] LABS: ALT 23 U/L (4-34); AST 29 U/L (14-36); African American GFR (CKD) >90 (>60 ml/min/1.73 sqM); Albumin 3.8 g/dL (3.5-5.0); Alkaline Phosphatase 117 U/L (38-126); Amylase 46 U/L (30-110); Anion Gap 10 mmol/L; Blood Urea Nitrogen 13 mg/dL (7-17); Calcium 9.2 mg/dL (8.4-10.2); Carbon Dioxide 23 mmol/L (22-30); Chloride 106 mmol/L (98-107); Glucose 107 mg/dL (74-99); Lipase 155 U/L (23-300); Non-African American GFR(CKD) >90 (>60 ml/min/1.73 sqM); Sodium 139 mmol/L (137-145); Total Bilirubin 0.2 mg/dL (0.2-1.3)
[2021-06-25 03:33] LABS: Potassium 3.7 mmol/L (3.5-5.1)
[2021-06-25 03:33] LABS: Appearance,Urine Turbid (Clear); Bilirubin,Urine Negative (Negative); Blood,Urine Large (Negative); Color,Urine Red; Glucose,Urine (UA) Negative (Negative); Ketones,Urine Negative (Negative); Leukocyte Esterase,Urine Large (Negative); Mucus,Urine Occasional /hpf; Nitrite,Urine Negative (Negative); Protein,Urine 3+ (Negative); RBC,Urine >182 /hpf (0-5); Specific Gravity,Urine 1.023 (1.001-1.035); Squamous Epithelial Cell,Urine 17 /hpf (0-4); Urobilinogen,Urine <2.0 mg/dL (<2.0); WBC,Urine >182 /hpf (0-5)
--- NOTE | 2021-06-25 03:38 | CT ---
EXAMINATION TYPE: CT abdomen pelvis wo con DATE OF EXAM: 06/25/2021 COMPARISON: None HISTORY: Abd Pain, back pain CT DLP: 469.90 mGycm Automated exposure control for dose reduction was used. Lung bases are clear. There is no pleural effusion. Heart size is normal. There is no pericardial eff usion. Liver spleen stomach pancreas gallbladder appear normal. The bile ducts are not dilated. There is no adrenal mass. Kidneys have normal size and contour. There is no hydronephrosis. There is some fullness of the left ureter compared to the right. No ureteral calculus is seen. There is no ret roperitoneal adenopathy. There is IUD in the uterine fundus. Uterus is anteverted. There is no pelvic mass. Lumbar vertebra have normal alignment. Posterior elements are intact. There is no compression fracture. The bony pelvis is intact. There is no mesenteric edema. There is no ascites or free air. There is no bowel obstruction. Appendi x is medial and appears normal. There is some mild retained fecal material in the large bowel. IMPRESSION: No evidence of renal stone or obstruction. Normal appendix. Mild constipation.
[2021-06-25] MEDS ORDERED: CEPHALEXIN 500 MG CAP PO STA (03:55)
[2021-06-25] MEDS ORDERED: CEPHALEXIN 500MG STARTER PACK 4 CAP BTL PO STA (03:55)
[2021-06-25] MEDS ORDERED: ACET/COD 300 MG/30 MG STARTER PACK 6 TAB BTL PO STA (03:56)
[2021-06-25] MEDS ORDERED: SENNOSIDES-DOCUSATE SODIUM 1 EACH TAB PO STA (03:58)
[2021-06-25 04:26] VITALS: BP 141/86; PULSE 84
== END 2021-06-25 04:26 | disposition home or self-care (01) ==
LOC: EC 02:05
DX: N39.0 Urinary tract infection, site not specified (principal); N12 Tubulo-interstitial nephritis, not specified as acute or chronic; K59.00 Constipation, unspecified; M54.9 Dorsalgia, unspecified; Z87.891 Personal history of nicotine dependence; Z91.81 History of falling
CPT/HCPCS: 36415; 80053; 82150; 83690; 85025; 81001; 81025; 74176; 99284; 96365; 96375; 96361; J2270; J0696; J1885

== ENCOUNTER 2021-07-31 10:00 | Emergency (ER) | payer OTHER ==
[2021-07-31] MEDS ORDERED: SODIUM CHLORIDE 0.9% 2,000 ML IV STA (10:36)
[2021-07-31] MEDS ORDERED: MORPHINE SULFATE 4 MG/ML SYRINGE IV STA (10:36)
[2021-07-31] MEDS ORDERED: ONDANSETRON 4 MG/2 ML VIAL IVP STA ×2 (10:36→13:01)
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
[2021-07-31 11:22] LABS: Basophils % (A) 0 %; Eosinophils # (A) 0.2 k/uL (0-0.7); Eosinophils % (A) 2 %; HCT 38.4 % (34.0-46.0); HGB 12.8 gm/dL (11.4-16.0); Lymphocytes # (A) 1.6 k/uL (1.0-4.8); Lymphocytes % (A) 14 %; MCH 30.3 pg (25.0-35.0); MCHC 33.2 g/dL (31.0-37.0); MCV 91.2 fL (80.0-100.0); Mean Platelet Volume 9.6; Monocytes # (A) 0.6 k/uL (0-1.0); Monocytes % (A) 5 %; Neutrophils # (A) 8.9 k/uL (1.3-7.7); Neutrophils % (A) 77 %; Platelet Count 268 k/uL (150-450); RBC 4.21 m/uL (3.80-5.40); RDW 12.9 % (11.5-15.5); WBC 11.4 k/uL (3.8-10.6)
[2021-07-31 11:37] LABS: ALT 24 U/L (4-34); AST 29 U/L (14-36); African American GFR (CKD) >90 (>60 ml/min/1.73 sqM); Albumin 4.2 g/dL (3.5-5.0); Alkaline Phosphatase 116 U/L (38-126); Amylase 68 U/L (30-110); Anion Gap 10 mmol/L; Blood Urea Nitrogen 14 mg/dL (7-17); Calcium 10.1 mg/dL (8.4-10.2); Carbon Dioxide 27 mmol/L (22-30); Chloride 103 mmol/L (98-107); Glucose 95 mg/dL (74-99); Lipase 145 U/L (23-300); Non-African American GFR(CKD) >90 (>60 ml/min/1.73 sqM); Sodium 140 mmol/L (137-145); Total Bilirubin 0.2 mg/dL (0.2-1.3); Total Protein 7.6 g/dL (6.3-8.2)
[2021-07-31 11:46] LABS: Appearance,Urine Cloudy (Clear); Bacteria,Urine Rare /hpf; Bilirubin,Urine Negative (Negative); Blood,Urine Moderate (Negative); Color,Urine Light Yellow; Glucose,Urine (UA) Negative (Negative); Ketones,Urine Negative (Negative); Leukocyte Esterase,Urine Large (Negative); Mucus,Urine Rare /hpf; Nitrite,Urine Positive (Negative); PH, Urine 5.5 (5.0-8.0); Protein,Urine 1+ (Negative); RBC,Urine 59 /hpf (0-5); Specific Gravity,Urine 1.014 (1.001-1.035); Squamous Epithelial Cell,Urine 16 /hpf (0-4); Urobilinogen,Urine <2.0 mg/dL (<2.0); WBC,Urine >182 /hpf (0-5)
[2021-07-31] MEDS ORDERED: cefTRIAXone IN SWFI 1,000 MG/10 ML SYRINGE IVP STA (12:08)
[2021-07-31] MEDS ORDERED: KETOROLAC 15 MG/ML 1 ML VIAL IM STA (12:46)
[2021-07-31] MEDS ORDERED: ACET/COD 300 MG/30 MG STARTER PACK 6 TAB BTL PO STA (12:46)
[2021-07-31] MEDS ORDERED: HYDROmorphone 0.5 MG/0.5 ML SYRINGE IVP STA (13:01)
[2021-07-31 13:23] VITALS: BP 116/77; PULSE 82; RESP 20; TEMP 97.8
== END 2021-07-31 13:22 | disposition home or self-care (01) ==
LOC: EC 10:00
DX: N12 Tubulo-interstitial nephritis, not specified as acute or chronic (principal); Z87.891 Personal history of nicotine dependence
CPT/HCPCS: 36415; 80053; 82150; 83605; 83690; 85025; 81001; 81025; 87086; 99284; 96372; 96374; 96375; 96361; J2270; J2405; J0696; J1885

== ENCOUNTER 2022-03-12 02:09 | Emergency (ER) | payer OTHER ==
[2022-03-12 02:24] VITALS: BP 116/77; PULSE 74; RESP 20; TEMP 97.7
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
[2022-03-12] MEDS ORDERED: IBUPROFEN 600 MG TAB PO STA (02:58)
== END 2022-03-12 03:49 | disposition home or self-care (01) ==
LOC: EC 02:09
DX: S39.012A Strain of muscle, fascia and tendon of lower back, initial encounter (principal); Z87.891 Personal history of nicotine dependence; X50.0XXA Overexertion from strenuous movement or load, initial encounter; Y92.89 Other specified places as the place of occurrence of the external cause
CPT/HCPCS: 99283

== ENCOUNTER → 2022-03-18 | Outpatient (CLI) | payer OTHER ==
--- NOTE | 2022-03-18 12:39 | XR ---
EXAM TYPE: LUMBAR SPINE X RAY SERIES COMPARISON: NONE HISTORY: Pain TECHNIQUE: 3 views are submitted. FINDINGS: Alignment is anatomic. The pedicles are intact. The transverse processes are intact. There is no s pondylolysis or spondylolisthesis. Tiny spur along the anterior margin of L4. IMPRESSION: 1. No acute process. If symptoms persist or there is concern for disc herniation correlate with MRI.
--- NOTE | 2022-03-18 13:06 | XR ---
EXAMINATION TYPE: XR cervical spine comp DATE OF EXAM: 03/18/2022 COMPARISON: NONE HISTORY: Pain TECHNIQUE: Four views are submitted. FINDINGS: The odontoid is intact. There are no compression deformities. The prevertebral soft tissue structur es are within normal limits. IMPRESSION: 1. No acute process. If symptoms persist or there is concern for disc herniation correlate with MRI.
== END | disposition home or self-care (01) ==
LOC: RADXRMAIN 12:12
PROVIDERS: ATTEND Emergency Medicine
DX: M54.2 Cervicalgia (principal); M54.50 Low back pain, unspecified
CPT/HCPCS: 72050; 72100

== ENCOUNTER → 2022-06-04 | Outpatient (CLI) | payer OTHER ==
--- NOTE | 2022-06-04 12:05 | XR ---
Thoracic spine HISTORY: Pain 4 views of the thoracic spine Thoracic vertebral bodies show preserved height and bone mineralization. There is a slight spinal cur vature. No evident paraspinal mass. Disc spaces are maintained. IMPRESSION: No acute fracture or subluxation. Mild spinal curvature.
== END | disposition home or self-care (01) ==
LOC: RADXRMAIN 11:14
PROVIDERS: ATTEND Emergency Medicine
DX: S16.1XXD Strain of muscle, fascia and tendon at neck level, subsequent encounter (principal); S23.3XXD Sprain of ligaments of thoracic spine, subsequent encounter; M43.9 Deforming dorsopathy, unspecified; X58.XXXD Exposure to other specified factors, subsequent encounter
CPT/HCPCS: 72072

== ENCOUNTER → 2022-07-22 | Outpatient (CLI) | payer OTHER ==
--- NOTE | 2022-07-22 21:48 | MR ---
EXAMINATION TYPE: MR leelee/sandra saeed con DATE OF EXAM: 07/22/2022 COMPARISON: X-ray thoracic spine June 04, 2022. X-ray lumbar spine March 18, 2022 HISTORY: Mid back pain and low back pain that radiates down left leg since March due to resident falli ng on them at work injury. TECHNIQUE: Multiplanar, multisequence imaging of the thoracic and lumbar spine are performed without IV contrast. FINDINGS: Thoracic spine: FINDINGS: Spinal cord shows normal course, caliber, and signal as it courses the thoracic spine. Jorge tebral body heights and alignment are satisfactory. No large disc herniation seen on sagittal images. Bone marrow signal intensity is maintained. Review of the axial images shows no significant spinal canal stenosis or neural foraminal narrowing a t any thoracic level. Visualized portion of the thorax and upper abdomen show no obvious abnormality . IMPRESSION: No significant abnormality is seen to account for patient's symptoms. Lumbar spine: Sagittal images of the lumbar spine show vertebral body heights and alignment to appear satisfactory. Disc desiccation L5-S1 level. Disc space heights are maintained. The conus medullaris is normal in p osition and signal ending at L1-L2 disc space level. Focus of Modic type II endplate change at the an terior inferior L5 level. Axial images show T12-L1 through the L2-L3 levels to appear within normal limits. Axial images at L3-L4 and L4-L5 levels show mild facet arthropathy bilaterally. Axial images at the L5-S1 level shows tiny central disc protrusion with posterior annular tear but sp inal canal is preserved as there is increased surrounding epidural fat. Mild facet arthropathy bilate rally but bilateral neural foramina are patent. Paraspinal muscle bulk is maintained. IMPRESSION: Mild degenerative changes in the lower lumbar spine as detailed above.
== END | disposition home or self-care (01) ==
LOC: RADMRIMAIN 07:27
PROVIDERS: ATTEND Emergency Medicine
DX: S16.1XXD Strain of muscle, fascia and tendon at neck level, subsequent encounter (principal); S39.012D Strain of muscle, fascia and tendon of lower back, subsequent encounter; S23.3XXD Sprain of ligaments of thoracic spine, subsequent encounter; M51.36 Other intervertebral disc degeneration, lumbar region; X58.XXXD Exposure to other specified factors, subsequent encounter
CPT/HCPCS: 72146; 72148

== ENCOUNTER 2023-01-15 16:04 | Emergency (ER) | payer OTHER ==
[2023-01-15] MEDS ORDERED: KETOROLAC 15 MG/ML 1 ML VIAL IM STA (16:23)
--- NOTE | 2023-01-15 16:44 | XR ---
EXAMINATION TYPE: XR knee complete LT DATE OF EXAM: 01/15/2023 CLINICAL HISTORY: pain TECHNIQUE: Three views of the left knee are obtained. COMPARISON: None. FINDINGS: There is no acute fracture/dislocation. The tri-compartment joint spaces appear within no rmal limits. The overlying soft tissue appears unremarkable. IMPRESSION: There is no acute fracture or dislocation ICD 10 NO FRACTURE, INITIAL EVALUATION
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
[2023-01-15] MEDS ORDERED: CEPHALEXIN 500 MG CAP PO STA (17:53)
[2023-01-15] MEDS ORDERED: SULFAMETHOX-TMP 800-160MG 1 EACH TAB PO STA (17:53)
[2023-01-15 18:09] VITALS: BP 110/78; PULSE 98; RESP 16; TEMP 98
== END 2023-01-15 18:09 | disposition home or self-care (01) ==
LOC: EC 16:04
DX: L02.416 Cutaneous abscess of left lower limb (principal); F41.9 Anxiety disorder, unspecified; F32.A Depression, unspecified; Z87.891 Personal history of nicotine dependence
CPT/HCPCS: 73562; 99283; 96372; J1885

== ENCOUNTER 2023-07-31 18:25 | Emergency (ER) | payer OTHER ==
[2023-07-31 18:38] VITALS: BP 158/45; PULSE 90; RESP 18; TEMP 97.8
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
[2023-07-31] MEDS ORDERED: KETOROLAC 15 MG/ML 1 ML VIAL IM STA (19:00)
[2023-07-31] MEDS ORDERED: ACET/COD 300 MG/30 MG STARTER PACK 6 TAB BTL PO STA (19:04)
== END 2023-07-31 19:38 | disposition home or self-care (01) ==
LOC: EC 18:25
DX: K03.81 Cracked tooth (principal); F32.A Depression, unspecified; F41.9 Anxiety disorder, unspecified; F12.90 Cannabis use, unspecified, uncomplicated; Z79.899 Other long term (current) drug therapy; Z87.891 Personal history of nicotine dependence
CPT/HCPCS: 99282; 96372; J1885

== ENCOUNTER 2024-02-02 18:46 | Emergency (ER) | payer OTHER ==
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
[2024-02-02 19:26] VITALS: RESP 18
[2024-02-02] MEDS: IBUPROFEN 800 MG TAB PO STA (19:38)
[2024-02-02] MEDS: FLUORESCEIN STRIPS 1 MG STRIP RIGHT EYE ONE (19:42)
[2024-02-02] MEDS: PROPARACAINE 0.5% OPHTH DROPS 15 ML BTL RIGHT EYE STA (19:42)
[2024-02-02] MEDS: SULFACETAMIDE SOD 10% OPHTH DROPS 15 ML BTL RIGHT EYE SCH (20:29)
[2024-02-02] MEDS ORDERED: KETOROLAC 0.5% OPHTH DROPS 5 ML BTL RIGHT EYE SCH (21:00)
[2024-02-02 21:23] VITALS: BP 120/73; PULSE 87; TEMP 98
== END 2024-02-02 21:15 | disposition home or self-care (01) ==
LOC: EC 18:46
DX: S05.01XA Injury of conjunctiva and corneal abrasion without foreign body, right eye, initial encounter (principal); F12.90 Cannabis use, unspecified, uncomplicated; Z87.891 Personal history of nicotine dependence; X58.XXXA Exposure to other specified factors, initial encounter
CPT/HCPCS: 99283

== ENCOUNTER 2024-04-21 19:22 | Emergency (ER) | payer OTHER ==
[2024-04-21 19:30] VITALS: TEMP 98.1
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
[2024-04-21] MEDS: ACET/COD 300 MG/30 MG STARTER PACK 6 TAB BTL PO STA (20:01)
[2024-04-21] MEDS: HYDROcodone/APAP 5-325MG 1 EACH TAB PO STA (20:03)
[2024-04-21] MEDS: KETOROLAC 15 MG/ML 1 ML VIAL IM STA (20:03)
[2024-04-21 20:12] VITALS: BP 142/99; PULSE 72; RESP 18
== END 2024-04-21 20:16 | disposition home or self-care (01) ==
LOC: EC 19:22
DX: K03.81 Cracked tooth (principal)
CPT/HCPCS: 99283; 96372; J1885

== ENCOUNTER 2024-04-22 18:26 | Emergency (ER) | payer OTHER ==
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
[2024-04-22] MEDS: KETOROLAC 15 MG/ML 1 ML VIAL IVP STA (20:30)
[2024-04-22 20:57] LABS: ALT 18 U/L (4-34); AST 27 U/L (14-36); African American GFR (CKD) >90 (>60 ml/min/1.73 sqM); Albumin 4.3 g/dL (3.5-5.0); Alkaline Phosphatase 85 U/L (38-126); Anion Gap 7 mmol/L; Blood Urea Nitrogen 9 mg/dL (7-17); Calcium 9.3 mg/dL (8.4-10.2); Carbon Dioxide 24 mmol/L (22-30); Chloride 106 mmol/L (98-107); Glucose 78 mg/dL (74-99); Non-African American GFR(CKD) >90 (>60 ml/min/1.73 sqM); Potassium 3.7 mmol/L (3.5-5.1); Sodium 137 mmol/L (137-145); Total Bilirubin 0.7 mg/dL (0.2-1.3); Total Protein 7.3 g/dL (6.3-8.2)
[2024-04-22 21:03] LABS: Basophils # (A) 0.1 k/uL (0-0.2); Basophils % (A) 0 %; Eosinophils # (A) 0.2 k/uL (0-0.7); Eosinophils % (A) 1 %; HGB 12.7 gm/dL (11.4-16.0); Lymphocytes # (A) 1.6 k/uL (1.0-4.8); Lymphocytes % (A) 12 %; MCH 30.4 pg (25.0-35.0); MCHC 32.6 g/dL (31.0-37.0); Mean Platelet Volume 9.5; Monocytes # (A) 0.9 k/uL (0-1.0); Monocytes % (A) 6 %; Neutrophils # (A) 10.9 k/uL (1.3-7.7); Neutrophils % (A) 79 %; Platelet Count 220 k/uL (150-450); RBC 4.19 m/uL (3.80-5.40); RDW 13.3 % (11.5-15.5); WBC 13.7 k/uL (3.8-10.6)
[2024-04-22] MEDS: ONDANSETRON 4 MG/2 ML VIAL IVP STA (21:03)
[2024-04-22] MEDS: MORPHINE SULFATE 4 MG/ML SYRINGE IVP STA (21:03)
--- NOTE | 2024-04-22 21:11 | CT ---
EXAMINATION TYPE: CT facial bones w con CT DLP: 453.3 mGycm, Automated exposure control for dose reduction was used. DATE OF EXAM: 04/22/2024 8:46 PM COMPARISON: None. CLINICAL INDICATION:Female, 39 years old with history of right sided facial swelling; PHH, Right side dental abscess. TECHNIQUE: Multiple unenhanced axial CT images were obtained of the facial bones soft tissue and bone windows. Coronal, axial and sagittal reformatted images were also provided in soft tissue and bone windows and submitted for interpretation. Contrast used:100 ml mL of Isovue 300 with IV Contrast, (none if empty) Oral contrast used: (none if empty) FINDINGS: There is fat stranding changes along the right cheek small fluid collection measuring 16 x 4 x 9 mm e xtends along the right mandible with at least one tooth in this facility with periapical lucency invo lving the right lower second bicuspid. No evidence of fracture. The orbits and globes are intact. The re is mild paranasal mucosal thickening throughout the paranasal sinuses. [place] tonsilliths bilate rally. Adenoid calcification also present. Nonenlarged lymph nodes seen in the neck. The osseous stru ctures are patent No evidence for occlusion. IMPRESSION: Small abscess along the mandible along with right lower mandible second cuspid periapical lucency and associated synovitis change.
[2024-04-22] MEDS: ACET/COD 300 MG/30 MG STARTER PACK 6 TAB BTL PO STA (22:23)
[2024-04-22 22:47] VITALS: BP 129/88; PULSE 77; RESP 18; TEMP 98.5
== END 2024-04-22 22:30 | disposition home or self-care (01) ==
LOC: EC 18:26
DX: K04.7 Periapical abscess without sinus (principal)
CPT/HCPCS: 36415; 80053; 85025; 70487; 99283; 96365; 96375 ×3; J2270; J2405; J0696; J1885; Q9967

== ENCOUNTER → 2024-12-27 | Outpatient (CLI) | payer OTHER ==
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
== END | disposition home or self-care (01) ==
LOC: RADXRMAIN 10:51
PROVIDERS: ATTEND Emergency Medicine
DX: S46.912A Strain of unspecified muscle, fascia and tendon at shoulder and upper arm level, left arm, initial encounter (principal)

== ENCOUNTER → 2024-12-31 | Outpatient (CLI) | payer OTHER ==
--- NOTE | 2024-12-31 16:12 | MR ---
EXAMINATION TYPE: MR shoulder LT wo con DATE OF EXAM: 12/31/2024 3:53 PM COMPARISON: Left shoulder x-ray December 27, 2024 CLINICAL INDICATION: Female, 39 years old with history of S46.912A STRAIN MUSC TENDON FASCIA LEFT SIMON ULDER, Left shoulder pain since injured 12-20-2024, Painful to raise arm IV Contrast: cc (None if empty) TECHNIQUE: Multiplanar, multisequence imaging of the left shoulder is performed without contrast. FINDINGS: Rotator Cuff: Intact supraspinatus and infraspinatus tendons. Intact subscapularis tendon. Rotator cu ff muscle bulk is preserved Acromioclavicular Joint: Mild spurring. No suspicious narrowing. Moderate capsular hypertrophy. Under lying impingement not excluded sagittal image 16 Glenohumeral Joint: No significant effusion. No significant spurring. Labrum: The labrum appears grossly intact given limitation of non-arthrogram study. Biceps Tendon: The long head of biceps is in normal location within bicipital groove. Osseous structures: Tiny subchondral cystic change throughout the humeral head is present . Other: No additional significant abnormality is appreciated. IMPRESSION: No rotator cuff or labral tear is seen. AC joint arthropathy with possible underlying impingement. Co rrelate clinically. [facility], , 12/31/2024 4:09 PM
== END | disposition home or self-care (01) ==
LOC: RADMRIMAIN 15:05
PROVIDERS: ATTEND Emergency Medicine
DX: S46.912A Strain of unspecified muscle, fascia and tendon at shoulder and upper arm level, left arm, initial encounter (principal); M19.012 Primary osteoarthritis, left shoulder; X58.XXXA Exposure to other specified factors, initial encounter